=== PATIENT | male | born 1990 | race Caucasian/White ===

== ENCOUNTER 2024-09-18 09:45 | Emergency (ER) | payer OTHER | END 2024-09-18 11:22 | disposition home or self-care (01) | LOC: VM.ED 09:45 | DX: S92.535A Nondisplaced fracture of distal phalanx of left lesser toe(s), initial encounter for closed fracture (principal); W20.8XXA Other cause of strike by thrown, projected or falling object, initial encounter | CPT/HCPCS: 73660-T3; 99283 ==